=== PATIENT | male | born 1995 | race Caucasian/White ===

== ENCOUNTER 2021-07-05 08:44 | Emergency (ER) | payer OTHER ==
[~2021-07-05] VITALS: Ht 170.2 cm; Wt 60.0 kg
[2021-07-05 09:59] VITALS: BP 132/78
[2021-07-05] MEDS ORDERED: OMNI-PAC300 MG PO (10:09)
== END 2021-07-05 10:10 | disposition home or self-care (01) | DRG 605 ==
LOC: ED 08:44
DX: S61.412A Laceration without foreign body of left hand, initial encounter (principal); W23.0XXA Caught, crushed, jammed, or pinched between moving objects, initial encounter

== ENCOUNTER 2024-04-16 09:08 | Emergency (ER) | payer OTHER ==
[~2024-04-16] VITALS: Ht 170.2 cm; Wt 63.5 kg
[~2024-04-16 09:08] MED LIST: OMNI-PAC300 MG PO
[2024-04-16 09:14] VITALS: BP 119/77
[2024-04-16 09:15] VITALS: BP 101/71
[2024-04-16 09:30] VITALS: BP 103/70
[2024-04-16 09:46] VITALS: BP 109/67
[2024-04-16 10:16] VITALS: BP 111/64
== END 2024-04-16 10:18 | disposition home or self-care (01) | DRG 563 ==
LOC: ED 09:08
DX: S93.601A Unspecified sprain of right foot, initial encounter (principal); X50.0XXA Overexertion from strenuous movement or load, initial encounter; Y93.52 Activity, horseback riding